=== PATIENT | female | born 1935 | race Caucasian/White ===

== ENCOUNTER 2017-09-24 08:36 | Inpatient (IN) | payer BC, OTHER ==
[2017-08-31 11:15] VITALS: BMI 31.0
--- NOTE | 2017-08-31 11:49 | PAT Medication Instructions ---
Service Date Aug 31, 2017. Current Home Medication List Albuterol Hfa (Ventolin Hfa), 2-4 PUFFS INH Q6H PRN for SOB/Wheezing Alprazolam (Xanax), 0.5 MG PO QD PRN for Anxiety Aspirin (Aspirin Ec), 81 MG PO HS Bimatoprost (Lumigan), 1 DROPS OP QAM Biotin (Biotin 5000), 2 CAP PO HS Cholecalciferol (Vitamin D3), 1 TAB PO HS Escitalopram (Lexapro), 10 MG PO QAM Fluticasone Furoate-Vilanterol (Breo Ellipta 200-25 Mcg/INH), 1 PUFF INH QAM Fluticasone Prop/Salmeterol (Advair Diskus 250/50 60 Dose), 1 PUFF INH BID Folic Acid (Folic Acid), 1 TAB PO QAM Furosemide (Lasix), 20 MG PO QAM Hydrochlorothiazide (Hydrochlorothiazide), 1 TAB PO QAM Levothyroxine Sodium (Synthroid), 125 MCG PO QAM Losartan Potassium (Losartan Potassium), 1 TAB PO QAM Metoprolol Succ (Toprol Xl) (Toprol-Xl), 25 MG PO BID Multivitamin (Multivitamin), 1 TAB PO QAM Naproxen (Naprosyn), 500 MG PO BID Potassium Ext Rel (Klor-Con), 20 MEQ PO Q2D [Methotrexate], 25 MG SQ WK Medication Instructions For Your Scheduled Surgery - Check with surgeon for instructions: Naproxen (Naprosyn), 500 MG PO BID - Check with surgeon and prescribing physician for instructions: [Methotrexate], 25 MG SQ WK - Hold the following medications the morning of surgery: Folic Acid (Folic Acid), 1 TAB PO QAM Furosemide (Lasix), 20 MG PO QAM Hydrochlorothiazide (Hydrochlorothiazide), 1 TAB PO QAM Losartan Potassium (Losartan Potassium), 1 TAB PO QAM Multivitamin (Multivitamin), 1 TAB PO QAM Potassium Ext Rel (Klor-Con), 20 MEQ PO Q2D - Take the following medications the morning of surgery with a sip of water: Albuterol Hfa (Ventolin Hfa), 2-4 PUFFS INH Q6H PRN for SOB/Wheezing (if needed) Alprazolam (Xanax), 0.5 MG PO QD PRN for Anxiety (if needed) Bimatoprost (Lumigan), 1 DROPS OP QAM Escitalopram (Lexapro), 10 MG PO QAM Metoprolol Succ (Toprol Xl) (Toprol-Xl), 25 MG PO BID\ Levothyroxine Sodium (Synthroid), 125 MCG PO QAM Fluticasone Furoate-Vilanterol (Breo Ellipta 200-25 Mcg/INH), 1 PUFF INH QAM Fluticasone Prop/Salmeterol (Advair Diskus 250/50 60 Dose), 1 PUFF INH BID - Take the following medications as scheduled the night before surgery: Albuterol Hfa (Ventolin Hfa), 2-4 PUFFS INH Q6H PRN for SOB/Wheezing (if needed) Alprazolam (Xanax), 0.5 MG PO QD PRN for Anxiety (if needed) Aspirin (Aspirin Ec), 81 MG PO HS Biotin (Biotin 5000), 2 CAP PO HS Cholecalciferol (Vitamin D3), 1 TAB PO HS Metoprolol Succ (Toprol Xl) (Toprol-Xl), 25 MG PO BID Fluticasone Prop/Salmeterol (Advair Diskus 250/50 60 Dose), 1 PUFF INH BID If you have any questions please call us at [phone] or [phone] or [phone]
--- NOTE | 2017-08-31 12:47 | DIAGNOSTIC IMAGING REPORT ---
LATERAL VIEW THE CERVICAL SPINE IN FLEXION AND EXTENSION CLINICAL HISTORY: PREOP COMPARISON STUDY: 10/08/2014 FINDINGS: There are advanced multilevel degenerative changes. There is 4 mm of retrolisthesis of C3 on C4. There is 2 mm of anterolisthesis of C2 on C3. There is no evidence of instability on flexion or extension. There is no C1-2 instability. IMPRESSION: 1. Advanced multilevel degenerative change 2. No evidence of instability on flexion or extension Electronically signed by: Pablo Perez M.D. 08/31/2017 12:45 PM Dictated Date/Time: 08/31/2017 12:37 PM
--- NOTE | 2017-08-31 12:50 | DIAGNOSTIC IMAGING REPORT ---
CHEST 2 VIEWS ROUTINE HISTORY: Preop. COMPARISON: Chest 04/30/2014. FINDINGS: The lungs are clear. No pleural effusions. No pneumothorax. The heart is normal in size. Severe degenerative changes within the right shoulder. Fusion of multiple thoracic spine vertebral bodies. This remains unchanged. IMPRESSION: No significant change compared to the prior study. No acute process. Electronically signed by: Prashanth Shaffer M.D. 08/31/2017 12:49 PM Dictated Date/Time: 08/31/2017 12:46 PM
[2017-08-31 13:27] LABS: BASO % 0.3 %; BASO ABS # 0.03 K/uL (0-0.2); EOS % 0.2 %; EOS ABS # 0.02 K/uL (0-0.5); HEMATOCRIT 39.4 % (37-47); HEMOGLOBIN 13.3 g/dL (12.0-16.0); IG# 0.07 K/uL (0.00-0.02); LYMPH % 17.9 %; LYMPH ABS # 1.64 K/uL (1.2-3.4); MEAN CELL VOLUME 94.7 fL (80-100); MEAN CORPUSCULAR HGB CONC 33.8 g/dl (32-36); MEAN PLATELET VOLUME 9.8 fL (7.4-10.4); MONO % 8.3 %; MONO ABS # 0.76 K/uL (0.11-0.59); NEUT % 72.5 %; NEUT ABS # 6.62 K/uL (1.4-6.5); PLATELET COUNT 314 K/uL (130-400); RED CELL DISTRIBUTION WIDTH SD 51.1 fL (36.4-46.3); WHITE BLOOD COUNT 9.14 K/uL (4.8-10.8)
[2017-08-31 13:35] LABS: CALCIUM 9.5 mg/dl (8.5-10.1); CREATININE 1.11 mg/dl (0.60-1.20); POTASSIUM 4.5 mmol/L (3.5-5.1)
[2017-08-31 13:37] LABS: TOTAL PROTEIN 7.5 gm/dl (6.4-8.2)
[2017-08-31 13:38] LABS: PTT PATIENT 24.6 SECONDS (21.0-31.0)
--- NOTE | 2017-09-23 11:09 | History and Physical ---
History & Physical Date Sep 23, 2017. Chief Complaint PAIN IN RIGHT HIP History of Present Illness The patient is a 82 year old female with complaints of right hip pain for years. Pt not walking well and has tried nsaids and PT. Pt is ready for MARI. Additional History Hepatic Disease: No Endocrine Disorder: No Kidney Disease: No Hypertension: No Heart Disease: Yes Bleeding Tendencies: No Infectious Diseases: No Allergies Coded Allergies: No Known Allergies (Unverified , 08/31/17) Home Medications Scheduled Aspirin (Aspirin Ec), 81 MG PO HS Bimatoprost (Lumigan), 1 DROPS OP QAM Biotin (Biotin 5000), 2 CAP PO HS Cholecalciferol (Vitamin D3), 1 TAB PO HS Escitalopram (Lexapro), 10 MG PO QAM Fluticasone Furoate-Vilanterol (Breo Ellipta 200-25 Mcg/INH), 1 PUFF INH QAM Fluticasone Prop/Salmeterol (Advair Diskus 250/50 60 Dose), 1 PUFF INH BID Folic Acid (Folic Acid), 1 TAB PO QAM Furosemide (Lasix), 20 MG PO QAM Hydrochlorothiazide (Hydrochlorothiazide), 1 TAB PO QAM Levothyroxine Sodium (Synthroid), 125 MCG PO QAM Losartan Potassium (Losartan Potassium), 1 TAB PO QAM Metoprolol Succ (Toprol Xl) (Toprol-Xl), 25 MG PO BID Multivitamin (Multivitamin), 1 TAB PO QAM Naproxen (Naprosyn), 500 MG PO BID Potassium Ext Rel (Klor-Con), 20 MEQ PO Q2D [Methotrexate], 25 MG SQ WK Scheduled PRN Albuterol Hfa (Ventolin Hfa), 2-4 PUFFS INH Q6H PRN for SOB/Wheezing Alprazolam (Xanax), 0.5 MG PO QD PRN for Anxiety Physical Examination Skin: warm/dry, no rash Eyes: normal inspection, EOMI, sclerae normal ENT: normal ENT inspection, pharynx normal Head: normocephalic, atraumatic Neck: supple, no adenopathy, trachea midline Respiratory/Chest: lungs clear, normal breath sounds, no respiratory distress Cardiovascular: regular rate, rhythm, no edema, no murmur Abdomen / GI: normal bowel sounds, non tender Back: normal inspection Extremities: normal inspection, normal range of motion, + pertinent finding ( pain with rom right hip and very little rom right hip) Neurologic/Psych: no motor/sensory deficits, alert, normal reflexes, oriented x 3 Diagnosis DJD RIGHT HIP Plan of Treatment PLAN IS TO ADMIT AND UNDERGO RIGHT TOTAL HIP ARTHROPLASTY.
[~2017-09-24] VITALS: Ht 165.1 cm; Wt 82.0 kg
[2017-09-24] VITALS (8 sets, daily range): BP systolic 101–144; BP diastolic 62–92; PULSE 58–72; TEMP 36.2–37.1; O2SAT 94–99; Ht 165.1 cm; Wt 82.0 kg
[2017-09-24] MEDS: TRANEXAMIC ACID INJ 1,000 MG x 2 Bags IV SCH ×4 (06:30→09:54)
[~2017-09-24 08:36] MED LIST: ACETAMINOPHEN 500 MG TAB PO SCH; ADVIN25/60 INH; ALPR-411 PO; ASPI81TA28 PO; BIMA0.01 OP; BIOTCAP2 PO; BUPIVACAINE 0.5 % 5 MG/1 ML PF 10ML VIAL ONE; CEFAZOLIN 2000MG IV PUSH 15 ML IV SCH; CHOL1000 PO; CZR50 PO; CeleBREX 200 MG CAP PO SCH; DEXAMETHASONE 4 MG TAB PO SCH; ESCI10TA17 PO; FAMOTIDINE 20 MG TAB PO SCH; FLUT1INH7 INH; FOLI5CAP PO; FURO-85 PO; HYDR12.55 PO; LACTATED RINGER'S 1000ML 1,000 ML IV SCH; LEVO125T72 PO; METHOTREXATE SQ; METO25TA3 PO; METOCLOPRAMIDE HCL 10 MG TAB PO SCH; MULT-506 PO; NAPR-1169 PO; POTA20TA16 PO; ROPIVACAINE 5MG/ML 30 ML 150 MG, BUPIVACAINE 0.5% MPF INJ 30 ML, EpINEphrine HCL INJ 0.... INFIL SCH; VNTHFA/IN INH
[2017-09-24] MEDS ORDERED: ATROPINE SULFATE 0.1 MG/ML 5ML SYR IV PRN (09:15)
[2017-09-24] MEDS ORDERED: LABETALOL HCL IV 5 MG/ML 20ML IV PRN (09:15)
[2017-09-24] MEDS ORDERED: ONDANSETRON INJ 2 MG/ML 2 ML VIAL IV PRN ×2 (09:15→11:45)
[2017-09-24] MEDS ORDERED: EpHEDrine SULFATE INJ 50 MG/ML AMP IV PRN (09:15)
[2017-09-24] MEDS ORDERED: HYDROmorphone INJ 1 MG/ML SYR IV PRN (09:15)
[2017-09-24] MEDS ORDERED: MEPERIDINE HCL 25 MG/ML CARP IV PRN (09:15)
[2017-09-24] MEDS ORDERED: FENTANYL CITRATE INJ 50 MCG/1 ML 2 ML VIAL ONE ×2 (09:17→10:54)
[2017-09-24] MEDS ORDERED: MIDAZOLAM HCL 1 MG/ML 2ML VIAL ONE ×2 (09:17→09:41)
--- NOTE | 2017-09-24 09:23 | History & Physical Bridge Note ---
H&P Re-Evaluation Bridge Note: I have examined the patient, reviewed the History & Physical and in the interval since the performance of the History & Physical I have noted the following changes of clinical significance: No changes noted
[2017-09-24] MEDS ORDERED: ORTHO JOINT ANESTHETIC ONE (09:35)
[2017-09-24] MEDS ORDERED: BACITRACIN 50000 UNIT VIAL ONE (09:35)
[2017-09-24] MEDS ORDERED: POVIDONE-IODINE OP SOLN 30 ML BTL ONE (09:38)
[2017-09-24] MEDS ORDERED: LIDOCAINE HCL 2% 2 ML VIAL (20MG/ML) ONE (09:41)
[2017-09-24] MEDS ORDERED: PROPOFOL IV EMULSION 10 MG/ML 20 ML VIAL IV ONE (09:41)
[2017-09-24] MEDS ORDERED: ONDANSETRON INJ 2 MG/ML 2 ML VIAL ONE (09:42)
[2017-09-24] MEDS ORDERED: ROCURONIUM BROMIDE 10 MG/ML 5 ML VIAL IV ONE (10:53)
[2017-09-24] MEDS ORDERED: KETAMINE HCL INJ 50 MG/ML 10 ML VIAL ONE (10:54)
--- NOTE | 2017-09-24 11:31 | [facility] Post Operative Brief Note ---
Immediate Operative Summary Operative Date Sep 24, 2017. Pre-Operative Diagnosis Degenerative Joint Disease Right Hip Post-Operative Diagnosis Degenerative Joint Disease Right Hip Procedure(s) Performed Right Total Hip Arthroplasty Surgeon Dr. Christian Door Manager Surgeon(s) Agustin Ballard PA-C Estimated Blood Loss 40cc Findings Consistent with Post-Op Diagnosis Specimens A) Right femoral head- bone & tissue Drains one drain Anesthesia Type Spinal MAC Complication(s) none Disposition Accompanied Pt To Recover: no Disposition: Recovery Room / PACU
[2017-09-24] MEDS ORDERED: GLYCOPYRROLATE INJ 0.2 MG/ML VIAL ONE (11:39)
[2017-09-24] MEDS ORDERED: NEOSTIGMINE METHYLSULFATE 5 MG/5 ML SYR ONE (11:39)
[2017-09-24] MEDS ORDERED: SODIUM CHLORIDE 0.9% INJ 10 ML VIAL ONE (11:40)
--- NOTE | 2017-09-24 11:44 | [facility] Operative Report ---
Operative Report Operative Date Sep 24, 2017. Pre-Operative Diagnosis Degenerative Joint Disease Right Hip Post-Operative Diagnosis Degenerative Joint Disease Right Hip Procedure(s) Performed Right Total Hip Arthroplasty Surgeon Dr. Christian Chef Under Surgeon(s) Agustin Ballard PA-C Estimated Blood Loss 40cc Findings as above Specimens A) Right femoral head- bone & tissue Drains one drain Anesthesia Type General Complication(s) none Disposition no Recovery Room / PACU Description of Procedure IMPLANTS USED: [place] size 54 mm PSL MATIAS-coated acetabular cup, one acetabular screw, a 36 mm X3 elevated liner, and a #3 Accolade 2 stem with a 127 neck and a 36 mm +0 ceramic head INDICATIONS: Mrs. Ellsworth is a pleasant female who has unfortunately failed all forms of conservative measures. Therefore, they have has decided to undergo elective surgical intervention. All risks and benefits of the surgery were discussed with the patient and the family in entirety. PROCEDURE: The patient was brought to the operating room and properly identified by myself, anesthesia, and staff. Patient was given a general anesthetic and placed on the operating table with the right hip up. The hip was then prepped and draped in the standard orthopedic fashion. We made a standard posterolateral approach over the greater trochanteric area. We then dissected down to subcutaneous tissue until the fascia was identified. We incised the fascia in line with the skin incision. We then split the gluteus la muscles with finger dissection. We then put the Charnley retractor in place. We placed the retractor underneath the gluteus medius to expose the piriformis. The piriformis was then tagged with a tag suture and released from the insertion from the greater trochanteric area with the use of electrocautery. We then performed a T capsulotomy and the femoral head and neck were atraumatically dislocated. We then performed femoral neck osteotomy at the pre-template site. We removed the femoral head and neck without difficulty. We then placed the retractor around the acetabulum. We then began to ream the acetabulum to the appropriate size. We then impacted the cup into place and had a very good fixation within the pelvis. We then put the liner in place as well. Then using multiple size approaches from the Accolade 2 system a size #3 fit very nicely in the proximal femur. I then put trial components in place. WE had very good range of motion, excellent stability, and excellent leg length equality. We removed the trial components and irrigated the wound. We then impacted the components in place and irrigated the wound once more. We then closed the capsule and fascia with a 0 Vicryl suture, the deep dermis with 2-0 Vicryl suture, and finally the skin with a running 3-0 Vicryl subcuticular stitch. A sterile dressing was applied. The patient was taken to the recovery room in stable condition. Due to the complex nature of the procedure, the entire surgery was performed with the operational assistance of VENICE. The bacteriology research assistant was under direct supervision, was involved in the actual performance of all aspects of the surgical procedure including hemostasis, tissue retraction and incision, instrument management, patient positioning, and wound closure. I attest to the content of the Intraoperative Record and any orders documented therein. Any exceptions are noted below.
[2017-09-24] MEDS ORDERED: BISACODYL 10 MG SUPP PR PRN (11:45)
[2017-09-24] MEDS ORDERED: CEFAZOLIN IV 2 MG in DEXTROSE 5% 50ML 50 ML IV SCH (11:45)
[2017-09-24] MEDS ORDERED: ALUMINUM/MAGNESIUM/SIMETH (MAALOX MAX) 30 ML UDC PO PRN (11:45)
[2017-09-24] MEDS ORDERED: ZOLPIDEM TARTRATE 5 MG TAB PO PRN (11:45)
[2017-09-24] MEDS ORDERED: ALBUTEROL HFA 8 GM INHALER INH PRN (11:45)
[2017-09-24] MEDS ORDERED: MAGNESIUM HYDROXIDE SUSP 30 ML UDC PO PRN (11:45)
[2017-09-24] MEDS ORDERED: ALPRAZOLAM 0.5 MG TAB PO PRN (11:45)
[2017-09-24] MEDS: FENTANYL CITRATE INJ 50 MCG/1 ML 2 ML VIAL IV PRN ×2 (12:28→12:33)
--- NOTE | 2017-09-24 13:58 | Anesthesiology Progress Note ---
Anesthesia Post Op Note Date & Time Sep 24, 2017 at 13:58 Vital Signs Pain Intensity: 10.0 Vital Signs Past 12 Hours Date Time Temp Pulse Resp B/P (MAP) Pulse Ox O2 Delivery O2 Flow Rate FiO2 09/24/17 13:00 94 Nasal Cannula 3.0 09/24/17 13:00 94 Nasal Cannula 3.0 09/24/17 13:00 36.4 61 16 144/64 (90) 94 Nasal Cannula 3.0 09/24/17 12:50 70 14 137/86 97 Nasal Cannula 3 09/24/17 12:40 60 16 145/89 97 Nasal Cannula 3 09/24/17 12:30 71 16 149/85 97 Oxymask 5 09/24/17 12:20 72 16 160/77 95 Oxymask 5 09/24/17 12:11 36.5 76 16 131/64 97 Oxymask 5 09/24/17 09:09 37.1 60 20 129/71 96 Room Air Notes Mental Status: alert / awake / arousable, participated in evaluation Pt Amnestic to Procedure: Yes Nausea / Vomiting: adequately controlled Pain: adequately controlled Airway Patency, RR, SpO2: stable & adequate BP & HR: stable & adequate Hydration State: stable & adequate Anesthetic Complications: no major complications apparent
[2017-09-24] MEDS ORDERED: POTASSIUM CHLORIDE 20 MEQ TABCR PO SCH (14:00)
[2017-09-24] MEDS: OXYCODONE HCL IR 5 MG TAB (IMMEDIATE RELEASE) PO PRN (14:23)
[2017-09-24] MEDS: ACETAMINOPHEN 500 MG TAB PO SCH ×2 (14:28→22:21)
[2017-09-24] MEDS: SODIUM CHLORIDE 0.9% 1000ML 1,000 ML IV SCH (16:07)
[2017-09-24] MEDS: CEFAZOLIN IV 2,000 MG in SYRINGE 0 ML IV SCH (17:32)
[2017-09-24] MEDS ORDERED: TRANEXAMIC ACID INJ 1,000 MG in SODIUM CHLORIDE 0.9% 100ML 100 ML IV ONE (18:00)
[2017-09-24] MEDS: FLUTICASONE/SALMETEROL 250/50 (ADVAIR) 14 PUFF/1 INHALER INH SCH (20:38)
[2017-09-24] MEDS: DOCUSATE SODIUM 100 MG CAP PO SCH (20:38)
[2017-09-24] MEDS: METOPROLOL SUCC 25MG EXT REL TAB PO SCH (20:41)
[2017-09-24] MEDS: ASPIRIN 81 MG ECTAB PO SCH (20:41)
[2017-09-25] MEDS: CEFAZOLIN IV 2,000 MG in SYRINGE 0 ML IV SCH (01:38)
[2017-09-25] MEDS: SODIUM CHLORIDE 0.9% 1000ML 1,000 ML IV SCH ×2 (01:39→09:30)
[2017-09-25 04:05] VITALS: BP 148/80; PULSE 66; TEMP 36.9; O2SAT 95
[2017-09-25] MEDS: ACETAMINOPHEN 500 MG TAB PO SCH ×2 (05:23→14:16)
[2017-09-25] MEDS ORDERED: LEVOTHYROXINE 125 MCG TAB PO SCH (06:00)
[2017-09-25 06:51] VITALS: BP 117/73; PULSE 59; TEMP 36.9; O2SAT 95
[2017-09-25 07:05] LABS: HEMATOCRIT 33.4 % (37-47); IG# 0.04 K/uL (0.00-0.02); LYMPH % 5.4 %; MEAN CELL VOLUME 95.4 fL (80-100); MEAN CORPUSCULAR HEMOGLOBIN 31.4 pg (25-34); MEAN CORPUSCULAR HGB CONC 32.9 g/dl (32-36); MEAN PLATELET VOLUME 9.6 fL (7.4-10.4); MONO % 11.4 %; MONO ABS # 1.47 K/uL (0.11-0.59); NEUT % 82.9 %; NEUT ABS # 10.72 K/uL (1.4-6.5); PLATELET COUNT 255 K/uL (130-400); RED CELL DISTRIBUTION WIDTH CV 15.8 % (11.5-14.5); WHITE BLOOD COUNT 12.93 K/uL (4.8-10.8)
[2017-09-25] MEDS ORDERED: DEXAMETHASONE INJ 10 MG in SYRINGE 0 ML IV ONE (07:30)
[2017-09-25] MEDS: FLUTICASONE/SALMETEROL 250/50 (ADVAIR) 14 PUFF/1 INHALER INH SCH (08:32)
[2017-09-25] MEDS: ASPIRIN 81 MG ECTAB PO SCH (08:34)
[2017-09-25] MEDS: METOPROLOL SUCC 25MG EXT REL TAB PO SCH (08:37)
[2017-09-25] MEDS: OXYCODONE HCL IR 5 MG TAB (IMMEDIATE RELEASE) PO PRN (08:38)
--- NOTE | 2017-09-25 08:49 | Orthopedic Progress Note ---
Orthopedic Progress Note Date of Service Sep 25, 2017. Subjective Post OP Day: 1 Reports: feeling well, Denies: complaints Additional Notes: sitting up in chair at bedside. No complaints this AM. Pain controlled. Hoping to go home today. Objective calves soft nontender, N/V intact, dressing C/D/I, A&O x3, toes mobile Date Time Temp Pulse Resp B/P (MAP) Pulse Ox O2 Delivery O2 Flow Rate FiO2 09/25/17 08:18 Room Air 09/25/17 06:51 36.9 59 18 117/73 (88) 95 Room Air 09/25/17 04:05 36.9 66 18 148/80 (102) 95 Room Air 09/24/17 22:45 36.3 58 18 101/62 (75) 98 Room Air 09/24/17 20:40 65 111/68 (82) 09/24/17 19:45 36.5 60 16 112/64 (80) 95 Room Air 09/24/17 19:20 Room Air 09/24/17 16:15 36.2 67 16 142/92 (109) 99 Room Air 09/24/17 15:00 36.4 72 16 122/65 (84) 97 Nasal Cannula 3.0 09/24/17 14:16 58 16 141/72 (95) 97 Nasal Cannula 2.0 09/24/17 13:00 94 Nasal Cannula 3.0 09/24/17 13:00 94 Nasal Cannula 3.0 09/24/17 13:00 36.4 61 16 144/64 (90) 94 Nasal Cannula 3.0 09/24/17 12:50 70 14 137/86 97 Nasal Cannula 3 09/24/17 12:40 60 16 145/89 97 Nasal Cannula 3 09/24/17 12:30 71 16 149/85 97 Oxymask 5 09/24/17 12:20 72 16 160/77 95 Oxymask 5 09/24/17 12:11 36.5 76 16 131/64 97 Oxymask 5 09/24/17 09:09 37.1 60 20 129/71 96 Room Air Laboratory Results 24 Hours: Test 09/25/17 06:02 White Blood Count 12.93 K/uL Red Blood Count 3.50 M/uL Hemoglobin 11.0 g/dL Hematocrit 33.4 % Mean Corpuscular Volume 95.4 fL Mean Corpuscular Hemoglobin 31.4 pg Mean Corpuscular Hemoglobin Concent 32.9 g/dl Platelet Count 255 K/uL Mean Platelet Volume 9.6 fL Neutrophils (%) (Auto) 82.9 % Lymphocytes (%) (Auto) 5.4 % Monocytes (%) (Auto) 11.4 % Eosinophils (%) (Auto) 0.0 % Basophils (%) (Auto) 0.0 % Neutrophils # (Auto) 10.72 K/uL Lymphocytes # (Auto) 0.70 K/uL Monocytes # (Auto) 1.47 K/uL Eosinophils # (Auto) 0.00 K/uL Basophils # (Auto) 0.00 K/uL Assessment & Plan Assessment: POD 1 s/p Right MARI Plan: PT/OT Planning for HH PT Possible dc to home today Inhouse Planning Pain Management: PO Tylenol, Oxy IR DVT Prophylaxis: TEDs, SCDs, ASA Discharge Planning Discharge Planning: home with home health Pain Management: Ultram, PO Tylenol DVT Prophylaxis: TEDs, ASA Therapy: Physical Therapy
[2017-09-25] MEDS ORDERED: TRAM-10 PO (08:52)
[2017-09-25] MEDS ORDERED: ASPI81TA28 PO (08:52)
[2017-09-25] MEDS ORDERED: ACET-24 PO (08:53)
--- NOTE | 2017-09-25 08:58 | Discharge Instructions ---
Discharge Instructions Date of Service Sep 25, 2017. Admission Reason for Admission: Right Hip Osteoarthritis Discharge Discharge Diagnosis / Problem: Right Hip djd Discharge Goals Goal(s): Decrease discomfort, Improve function, Increase independence Activity Recommendations Activity Limitations: per Instructions/Follow-up section Weightbearing Status: Right weightbearing (as tolerated) . Instructions / Follow-Up Instructions / Follow-Up Dr Christian Total Hip Replacement Discharge Instructions Resume your Methotrexate in 2 weeks DERMABOND Prineo- This is a mesh tape dressing that is covered with glue. It should remain in place until the incision is properly healed, usually 10-14 days. This dressing is designed to naturally slough off. You may trim the excess mesh tape as it peels off. Incision may be briefly wet in a shower. Dry immediately by blotting with a clean, dry towel. Do not bath or swim until instructed by your doctor. Do not scratch, rub, or pick at the dressing. Do not apply any topical ointments or lotions until dressing is completely removed and/or instructed by your doctor. There may be a small piece of suture material at one end of your incision. Do not pull or trim this. If it is bothersome or catching on clothing, you may cover it with a band-aid. ICE constantly. If a drain is in place, it is to be removed when less than 10cc for 2 consecutive 8 hr shifts. If LUIS FERNANDO / Prevena device is in place, please see the instructions sheet. Also every Home Nursing Agency, Home PT, and Rehab is aware how this works. If your Home nurse or Therapist says they don't know what this is, have them call [facility] or their manager erp right away. It is meant to protect and help your incision healed faster. Please read the Do's and Don'ts sheet. This paper and the dues and downs are the most important the rest of your paperwork from the hospital is redundant and or confusing. This is the info I want you to take to heart. I typically give you 5 prescriptions. Some are Eprescribed to pharmacy already. They are: 1. Oxycodone or some form of a narcotic pain pill. Please take. Most important. 2. Aspirin - this is for blood clot prevention, please take. You may have them prescribe something stronger than aspirin, if so, you won't have a script for aspirin daily. 3. Tylenol. 4. Zofran - this is for nausea, take it if you need. 5. Celebrex - helps with inflammation, if not covered by insurance, then use ibuprofen 600 mg 2 to 3 times a day. If any problems or concerns, please call [facility] ( Marli if she is your coordinator ) FIRST. Do not go to ER unless directed by your [facility] physician or it's an absolute emergency. Our phone numbers are located all throughout your [facility] packet. Follow up with Dr Christian in 2 weeks. Please call for an appointment if one has not been made for you. [phone] Current Hospital Diet Patient's current hospital diet: Regular Diet Discharge Diet Recommended Diet: Regular Diet Procedures Procedures Performed: Right Total Hip Arthroplasty Pending Studies Studies pending at discharge: no Medical Emergencies . Who to Call and When: Medical Emergencies: If at any time you feel your situation is an emergency, please call 911 immediately. . Non-Emergent Contact Non-Emergency issues call your: Surgeon Call Non-Emergent contact if: temperature is above 101.5, your pain is not controlled, your pain is worsening, wound has increased drainage, wound has increased redness . "Provider Documentation" section prepared by Agustin Ballard. . VTE Core Measure Inpt VTE Proph given/why not?: Other Anticoagulation, T.E.DAddison Stockings, SCD's [place] Drug Monitoring Program Search Results: patient reviewed within database, no issues identified
[2017-09-25] MEDS ORDERED: ESCITALOPRAM OXALATE 10 MG TAB PO SCH (09:00)
[2017-09-25] MEDS ORDERED: LOSARTAN POTASSIUM 50 MG TAB PO SCH (09:00)
[2017-09-25] MEDS ORDERED: FUROSEMIDE 20 MG TAB PO SCH (09:00)
[2017-09-25] MEDS ORDERED: BIMATOPROST 0.01% OP SOLN 2.5 ML BTL OP SCH (09:00)
[2017-09-25 09:30] VITALS: BP 117/73; PULSE 59; TEMP 36.9; O2SAT 95
[2017-09-25] MEDS: DOCUSATE SODIUM 100 MG CAP PO SCH (11:39)
[2017-09-25 12:17] VITALS: BP 117/68; PULSE 57; TEMP 36.8; O2SAT 96
--- NOTE | 2017-10-01 09:33 | Discharge Summary ---
Orthopedic Discharge Summary Admission Date/Reason Sep 24, 2017 at 09:20 Right Hip Osteoarthritis. Discharge Date/Disposition Sep 25, 2017 Home with services Diagnosis Principal Diagnosis: Right Hip Djd Secondary Diagnoses/Problems: Hypothyroidism, Htn, CAD with stent placement, Rheumatoid Arthritis Procedure(s) Performed Right MARI Medication Reconciliation New Medications: Tramadol (Ultram) 50 Mg Tab 1-2 TABS PO Q4H PRN for Pain, #60 TAB Acetaminophen (Sb Non-Aspirin Extra Stre) 500 Mg Tab 1000 MG PO Q8 for 21 Days, #126 TAB Changed Medications: Aspirin (Aspirin Ec) 81 Mg Tab 81 MG PO BID for 30 Days (Changed from: HS) After 30 days, you may resume your once daily dose of Aspirin Continued Medications: Albuterol Hfa (Ventolin Hfa) 200 Puffs/41608 Mcg Aers 2-4 PUFFS INH Q6H PRN for SOB/Wheezing, #1 INHALER Alprazolam (Xanax) 0.5 Mg Tab 0.5 MG PO QD PRN for Anxiety, TAB Bimatoprost (Lumigan) 0.01 % Aisha 1 DROPS OP QAM for 30 Days, #2.5 ML 3 Refills Biotin (Biotin 5000) 5 Mg Cap 2 CAP PO HS Cholecalciferol (Vitamin D3) 1,000 Unit Tab 1 TAB PO HS for 90 Days, TAB 3 Refills Escitalopram (Lexapro) 10 Mg Tab 10 MG PO QAM, TAB Fluticasone Furoate-Vilanterol (Breo Ellipta 200-25 Mcg/INH) 1 Inh Inh 1 PUFF INH QAM Fluticasone Prop/Salmeterol (Advair Diskus 250/50 60 Dose) 1 Ea Aerp 1 PUFF INH BID, INHALER Folic Acid (Folic Acid) 5 Mg Cap 1 TAB PO QAM Furosemide (Lasix) 20 Mg Tab 20 MG PO QAM, TAB Levothyroxine Sodium (Synthroid) 125 Mcg Tab 125 MCG PO QAM, TAB Losartan Potassium (Losartan Potassium) 50 Mg Tab 1 TAB PO QAM Metoprolol Succ (Toprol Xl) (Toprol-Xl) 25 Mg Tabcr 25 MG PO BID, #30 TAB Multivitamin (Multivitamin) Tab 1 TAB PO QAM, TAB Potassium Ext Rel (Klor-Con) 20 Meq Tabcr 20 MEQ PO Q2D, TAB Discontinued Medications: Naproxen (Naprosyn) 500 Mg Tab 500 MG PO BID, TAB [Methotrexate] () 25 MG SQ WK Admission Physical Exam As per Admitting History & Physical. Hospital Course The Patient had an uneventful hospital course. Labs remained stable- lowest hemoglobin recorded: 11.0 . Pain controlled on oral medications. Participated in PT with ambulation distance of 335 feet. Drainage output totaled 50 cc prior to discontinuation. Patient did not have a reported bowel movement. Incision remained clean/dry/intact; leg lengths equal. DVT prophylaxis with Aspirin EC 81mg BID x 30 days/Alexander stockings. Patient discharged home with Home Health Services in stable condition. Please refer to daily progress notes for further details. Discharge Instructions Please refer to the electronic Patient Visit Report (Discharge Instructions) for additional information.
== END 2017-09-25 15:36 | disposition home health service (06) | DRG 470 ==
LOC: C.ACU 08:36 → C.3E 09:20 → ENRESERV 12:40
PROVIDERS: ADMIT Orthopaedic Surgery; ATTEND Orthopaedic Surgery
PROC: 0SR903Z Replacement of Right Hip Joint with Ceramic Synthetic Substitute, Open Approach (ICD-10-PCS; principal; 2017-09-24 11:15)
DX: M16.11 Unilateral primary osteoarthritis, right hip (principal); I10 Essential (primary) hypertension; I25.10 Atherosclerotic heart disease of native coronary artery without angina pectoris; J45.909 Unspecified asthma, uncomplicated; G47.33 Obstructive sleep apnea (adult) (pediatric); M06.9 Rheumatoid arthritis, unspecified; E78.5 Hyperlipidemia, unspecified; E03.9 Hypothyroidism, unspecified; F32.9 Major depressive disorder, single episode, unspecified; F41.9 Anxiety disorder, unspecified; Z79.899 Other long term (current) drug therapy; E66.9 Obesity, unspecified; Z68.30 Body mass index [BMI] 30.0-30.9, adult; Z87.891 Personal history of nicotine dependence; Z95.5 Presence of coronary angioplasty implant and graft; Z96.653 Presence of artificial knee joint, bilateral; Z98.890 Other specified postprocedural states; Z79.1 Long term (current) use of non-steroidal anti-inflammatories (NSAID); Z79.51 Long term (current) use of inhaled steroids; Z79.82 Long term (current) use of aspirin